=== PATIENT | female | born 1990 | race American Indian/Alaskan Native ===

== ENCOUNTER 2019-02-06 23:32 | Emergency (ER) | payer MEDICARE ==
[2019-02-07 00:02] LABS: Basophils # (Auto) 0.1 K/mm3 (0.0-0.1); Hematocrit 36.8 % (30.3-42.9); Hemoglobin 12.3 gm/dl (10.1-14.3); Lymphocytes # (Auto) 1.8 K/mm3 (1.2-5.4); Lymphocytes % (Auto) 16.3 % (13.4-35.0); Mean Corpuscular HGB Conc 34 % (30-34); Mean Corpuscular Volume 75 fl (79-97); Monocytes # (Auto) 0.8 K/mm3 (0.0-0.8); Monocytes % (Auto) 7.7 % (0.0-7.3); Platelet Count 417 K/mm3 (140-440); Red Blood Count 4.88 M/mm3 (3.65-5.03); Red Cell Distribution Width 14.8 % (13.2-15.2)
[2019-02-07 00:13] LABS: BUN/Creatinine Ratio 15; Blood Urea Nitrogen 15 mg/dL (7-17); Calcium 9.1 mg/dL (8.4-10.2); Hemolysis Index 8
[2019-02-07] MEDS ORDERED: NACL 0.9% 1000 ML 1,000 ML IV ONE (02:15)
[2019-02-07] MEDS ORDERED: ZOFRAN IV ONE (02:15)
--- NOTE | 2019-02-07 03:32 | Emergency Department Report ---
ED Medical Clearance HPI - General Chief complaint: Medical Clearance Stated complaint: COCAINE SIDE EFFECTS Time Seen by Provider: 02/07/19 02:13 Source: patient Mode of arrival: Ambulatory Limitations: No Limitations - History of Present Illness Initial comments: pt is a 28 y/o aaf who presents for medical clearance , pt denies vomiting no fever, no chills , request med clearance for rehab for cocaine dependence Complaint: medical clearance request Onset/Timin -: hour(s) Time: 18:00 Reason for Medical Clearance: other (rehab) Place: home Alledged Intoxication: No Compliant with Home Medications: No Associated Symptoms: malaise. denies: chest pain, palpitations, diaphoresis, confusion, fever/chills, syncope, weakness Treatments Prior to Arrival: none Home medications: Previous Rx's Medication Instructions Recorded Last Taken Type Nitrofurantoin [place]/M-Cryst 100 mg PO BID 7 Days #14 capsule 02/07/19 Unknown Rx [Macrobid CAP] Allergies/Adverse reactions: Allergies Allergy/AdvReac Type Severity Reaction Status Date / Time benztropine [From Cogentin] Allergy Swelling Verified 02/06/19 23:39 haloperidol [From Haldol] Allergy Swelling Verified 02/06/19 23:39 ED Review of Systems ROS: Stated complaint: COCAINE SIDE EFFECTS Other details as noted in HPI Constitutional: malaise. denies: chills, fever Eyes: denies: eye pain, eye discharge, vision change ENT: denies: ear pain, throat pain Respiratory: denies: cough, shortness of breath, wheezing Cardiovascular: denies: chest pain, palpitations Endocrine: no symptoms reported Gastrointestinal: denies: abdominal pain, nausea, vomiting, diarrhea Genitourinary: as per HPI Musculoskeletal: denies: back pain, joint swelling, arthralgia Skin: denies: rash, lesions Neurological: denies: headache, weakness, numbness, paresthesias, confusion, vertigo Psychiatric: denies: anxiety, depression, auditory hallucinations, visual hallucinations, homicidal thoughts, suicidal thoughts Hematological/Lymphatic: denies: easy bleeding, easy bruising ED Past Medical Hx - Past Medical History Previous Medical History?: No - Surgical History Past Surgical History?: No - Social History Smoking Status: Current Every Day Smoker Substance Use Type: Alcohol, Cocaine, Marijuana - Medications Home Medications: Home Medications Medication Instructions Recorded Confirmed Last Taken Type Nitrofurantoin [place]/M-Cryst 100 mg PO BID 7 Days #14 capsule 02/07/19 Unknown Rx [Macrobid CAP] ED Physical Exam - General Limitations: No Limitations General appearance: alert, in no apparent distress - Head Head exam: Present: atraumatic, normocephalic - Eye Eye exam: Present: normal appearance, PERRL Pupils: Present: normal accommodation - ENT ENT exam: Present: normal orophraynx, mucous membranes moist - Neck Neck exam: Present: normal inspection, full ROM, lymphadenopathy. Absent: tenderness, meningismus, thyromegaly - Respiratory Respiratory exam: Present: normal lung sounds bilaterally. Absent: respiratory distress, wheezes, rales, rhonchi, stridor, chest wall tenderness - Cardiovascular Cardiovascular Exam: Present: normal rhythm, tachycardia, normal heart sounds. Absent: systolic murmur, diastolic murmur, rubs, gallop - GI/Abdominal GI/Abdominal exam: Present: soft, normal bowel sounds. Absent: distended, tenderness, guarding, rebound, rigid, bruit, hernia - Rectal Rectal exam: Present: deferred - Extremities Exam Extremities exam: Present: normal inspection, full ROM, normal capillary refill. Absent: tenderness, pedal edema - Back Exam Back exam: Present: normal inspection, full ROM. Absent: tenderness, CVA tenderness (R), CVA tenderness (L), rash noted - Neurological Exam Neurological exam: Present: alert, oriented X3, CN II-XII intact, normal gait, reflexes normal. Absent: motor sensory deficit - Expanded Neurological Exam Expanded Patient oriented to: Present: person, place, time Speech: Present: fluid speech Cranial nerves: EOM's Intact: Normal, Gag Reflex: Normal, Tongue Deviation: Normal, Nystagmus: Normal Cerebellar function: Romberg: Normal Motor strength exam: RUE: 5, LUE: 5, RLE: 5, LLE: 5 DTR: bicep (R): 2+, bicep (L): 2+, ankle (R): 2+, ankle (L): 2+ Best Eye Response (Urich): (4) open spontaneously Best Motor Response ([place]): (6) obeys commands Best Verbal Response (Urich): (5) oriented Urich Total: 15 - Psychiatric Psychiatric exam: Present: normal affect, normal mood. Absent: agitated, anxious, manic, homicidal ideation, suicidal ideation - Skin Skin exam: Present: warm, dry, intact, normal color. Absent: rash ED Course Vital Signs 02/06/19 02/07/19 23:36 02:55 Temperature 98.2 F Pulse Rate 146 H Respiratory 18 18 Rate Blood Pressure 121/84 O2 Sat by Pulse 97 100 Oximetry ED Medical Decision Making - Lab Data Result diagrams: 02/06/19 23:41 02/06/19 23:41 Labs 02/06/19 02/06/19 02/06/19 23:41 23:41 23:41 WBC RBC Hgb Hct MCV MCH MCHC RDW Plt Count Lymph % (Auto) [place] % (Auto) Eos % (Auto) Baso % (Auto) Lymph # [place] # Eos # Baso # Seg Neutrophils % Seg Neutrophils # Sodium 140 Potassium 3.8 Chloride 103.7 Carbon Dioxide 20 L Anion Gap 20 BUN 15 Creatinine 1.0 Estimated GFR > 60 BUN/Creatinine Ratio 15 Glucose 125 H Calcium 9.1 Urine Color Urine Turbidity Urine pH Ur Specific [place] Urine Protein Urine Glucose (UA) Urine Ketones Urine Blood Urine Nitrite Urine Bilirubin Urine Urobilinogen Ur Leukocyte Esterase Urine WBC (Auto) Urine RBC (Auto) U Epithel Cells (Auto) Urine Mucus Salicylates < 0.3 L Urine Opiates Screen Urine Methadone Screen Acetaminophen < 5.0 L Ur Barbiturates Screen Ur Phencyclidine Scrn Ur Amphetamines Screen U Benzodiazepines Scrn Plasma/Serum Alcohol 02/06/19 02/06/19 02/07/19 23:41 23:41 04:00 WBC 10.7 RBC 4.88 Hgb 12.3 Hct 36.8 MCV 75 L MCH 25 L MCHC 34 RDW 14.8 Plt Count 417 Lymph % (Auto) 16.3 [place] % (Auto) 7.7 H Eos % (Auto) 0.0 Baso % (Auto) 1.0 Lymph # 1.8 [place] # 0.8 Eos # 0.0 Baso # 0.1 Seg Neutrophils % 75.0 H Seg Neutrophils # 8.0 H Sodium Potassium Chloride Carbon Dioxide Anion Gap BUN Creatinine Estimated GFR BUN/Creatinine Ratio Glucose Calcium Urine Color [place] Urine Turbidity Slightly-cloudy Urine pH 6.0 Ur Specific [place] 1.018 Urine Protein 30 mg/dl Urine Glucose (UA) Neg Urine Ketones Neg Urine Blood Lg Urine Nitrite Neg Urine Bilirubin Neg Urine Urobilinogen < 2.0 Ur Leukocyte Esterase Sm Urine WBC (Auto) 11.0 H Urine RBC (Auto) > 182.0 U Epithel Cells (Auto) 3.0 Urine Mucus Few Salicylates Urine Opiates Screen Urine Methadone Screen Acetaminophen Ur Barbiturates Screen Ur Phencyclidine Scrn Ur Amphetamines Screen U Benzodiazepines Scrn Plasma/Serum Alcohol 0.06 02/07/19 04:00 WBC RBC Hgb Hct MCV MCH MCHC RDW Plt Count Lymph % (Auto) [place] % (Auto) Eos % (Auto) Baso % (Auto) Lymph # [place] # Eos # Baso # Seg Neutrophils % Seg Neutrophils # Sodium Potassium Chloride Carbon Dioxide Anion Gap BUN Creatinine Estimated GFR BUN/Creatinine Ratio Glucose Calcium Urine Color Urine Turbidity Urine pH Ur Specific [place] Urine Protein Urine Glucose (UA) Urine Ketones Urine Blood Urine Nitrite Urine Bilirubin Urine Urobilinogen Ur Leukocyte Esterase Urine WBC (Auto) Urine RBC (Auto) U Epithel Cells (Auto) Urine Mucus Salicylates Urine Opiates Screen Presumptive negative Urine Methadone Screen Presumptive negative Acetaminophen Ur Barbiturates Screen Presumptive negative Ur Phencyclidine Scrn Presumptive negative Ur Amphetamines Screen Presumptive negative U Benzodiazepines Scrn Presumptive negative Plasma/Serum Alcohol - EKG Data EKG shows normal: sinus rhythm, axis, intervals, QRS complexes, ST-T waves Rate: tachycardia - EKG Data When compared to previous EKG there are: previous EKG unavailable Interpretation: normal EKG EKG interp by ED attending Sinus tach No ST Elevated [place], 02/07/19 05:35 - Medical Decision Making Heart rate is improved there is no chest pain or shortness of breath no diaphoresis no back pain no nausea vomiting sounds are normal patient will be DC'd to home with medical clearance for rehabilitation patient will follow up with a [facility] this morning patient is currently alert and oriented 3 ambulatory no symptoms of withdrawal no agitation no confusion ED Disposition Clinical Impression: Encounter for rehabilitation evaluation, Substance abuse UTI (urinary tract infection) Qualifiers: Urinary tract infection type: acute cystitis Hematuria presence: without hematuria Qualified Code(s): N30.00 - Acute cystitis without hematuria Disposition: DC-01 TO HOME OR SELFCARE Is pt being admited?: No Does the pt Need Aspirin: No Condition: Stable Instructions: Medical Clearance for Substance Abuse Treatment (ED), Urinary Tract Infection in Women (ED) Additional Instructions: Follow up with [facility] this am for Rehab admission as scheduled Prescriptions: Nitrofurantoin [place]/M-Cryst [Macrobid CAP] 100 mg PO BID 7 Days #14 capsule Referrals: [facility] [Outside] - 3-5 Days Forms: Work/School Release Form(ED) Time of Disposition: 05:41
[2019-02-07 04:36] LABS: Bilirubin,Urine NEG (Negative); Blood,Urine LG (Negative); Mucus,Urine FEW /HPF; Urobilinogen,Urine < 2.0 mg/dL (<2.0)
[2019-02-07 04:37] LABS: Color,Urine Amber (Yellow); RBC,Urine > 182.0 /HPF (0.0-6.0)
[2019-02-07 04:41] LABS: Amphetamine Screen,Urine PRESUMPTIVE NEGATIVE; Benzodiazepines Screen,Urine PRESUMPTIVE NEGATIVE; Methadone Screen,Urine PRESUMPTIVE NEGATIVE; Opiate Screen,Urine PRESUMPTIVE NEGATIVE
[2019-02-07 05:56] VITALS: BP 118/80
[2019-02-07 05:57] LABS: Cannabinoid Screen,Urine PRESUMPTIVE POSITIVE; Cocaine Screen,Urine PRESUMPTIVE POSITIVE
== END 2019-02-07 05:54 | disposition home or self-care (01) ==
LOC: ED 23:32
DX: N30.00 Acute cystitis without hematuria (principal); F17.200 Nicotine dependence, unspecified, uncomplicated; F12.10 Cannabis abuse, uncomplicated; F14.10 Cocaine abuse, uncomplicated; Z88.8 Allergy status to other drugs, medicaments and biological substances
CPT/HCPCS: 36415; 80048; 80307; 81001; 85025; 93005; 93010; 96374; 99283; G0480; J2405; J7030; 80320